=== PATIENT | female | born 1965 | race Caucasian/White ===

== ENCOUNTER 2018-08-29 12:05 | Emergency (ER) | payer MEDICAID, OTHER ==
[2018-08-29] MEDS: AZITHROMYCIN 250 MG TAB PO (14:31)
[2018-08-29] MEDS: IBUPROFEN 800 MG TAB PO (14:32)
== END 2018-08-29 15:11 | disposition home or self-care (01) ==
LOC: E/R 12:05
DX: R07.81 Pleurodynia (principal)
CPT/HCPCS: 71045; 93005; 99284-25